=== PATIENT | female | born 1975 | race Caucasian/White ===

== ENCOUNTER → 2016-09-27 | Outpatient (CLI) | payer MEDICARE, MEDICAID ==
--- NOTE | 2016-09-27 09:09 | Diagnostic Imaging Report ---
CLINICAL INDICATION: Patient with low back pain since 2006. Patient had a lifting injury. EXAM: MRI of the lumbar spine performed without IV contrast. Sagittal T2, sagittal T1, sagittal stir, axial T1, and axial T2. COMPARISON: None. FINDINGS: There is a 13 mm cyst involving the posterior aspect of the inferior left kidney and a roughly 11 mm cyst involving the mid portion of the right kidney. Assuming 5 lumbar type vertebra. There is slight loss of upper lumbar spine lordotic posture. Otherwise, the lumbar spine shows no acute fracture or dislocation. There are multiple chronic Schmorl's nodes involving the T12, L1, L2, and L3 vertebral bodies. There is a small amount of Modic type II degenerative signal changes involving the anterior aspects of the T11, T12, L1, L3, and L5 vertebral bodies. The visualized portions of the distal spinal cord, conus medullaris, and cauda equina have normal anatomic appearance. The conus medullaris tip is seen at the mid L1 vertebral body level. No paraspinal soft tissue abnormality is seen. There are moderately hypertrophic disc spurs anteriorly throughout the thoracolumbar spine. There is multilevel facet arthropathy. T11-T12: There is a diffuse disc bulge, endplate irregularity and minimal ligamentum flavum buckling. There is moderate central canal narrowing. T12-L1: There is a mild diffuse disc bulge with a small left paracentral disc extrusion/herniation component, endplate irregularity and mild facet arthropathy. There is mild central canal narrowing. L1-L2: There is a diffuse disc bulge with a left paracentral disc protrusion/herniation component. There is mild loss of intervertebral disc height, endplate irregularity. There is mild central canal narrowing. There is no significant neural foramen narrowing. L2-L3: A small anterior disc spurs. There is no significant central spinal canal or neural foramen narrowing. L3-L4: There is a diffuse disc bulge with disc spurs extending into the far right lateral and anterior aspect at this level. There is mild bilateral facet arthropathy. There is mild central canal narrowing, mild to moderate right neural foramen narrowing, and moderate left neural foramen narrowing. L4-L5: There is a diffuse disc bulge with small central disc protrusion/herniation component. There is mild bilateral facet arthropathy. There is minimal impression upon the thecal sac anteriorly. There is moderate bilateral neural foramen narrowing. L5-S1: There is a [id number] sized central disc protrusion/herniation with roughly 12 mm of superior disc migration centrally. There is mild impression upon the thecal sac anteriorly. There is concern for impingement upon the non-exited left S1 nerve root. There is mild left neural foramen narrowing. IMPRESSION: 1: There is no evidence of acute lumbar spine fracture or dislocation. 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 3: There is a small to moderate sized L5-S1 central disc herniation with superior disc migration which causes concern for impingement upon the non-exited left S1 nerve root. 4: There is moderate central canal narrowing at the T11-T12 level due to diffuse disc bulge. 5: There is [id number] multilevel neural foramen narrowing. 6: Bilateral renal cysts. Dictated by: Dictated on workstation # [id number]
== END ==
LOC: RAD 06:50
PROVIDERS: ATTEND Family Medicine
DX: M46.46 Discitis, unspecified, lumbar region (principal); M48.07 Spinal stenosis, lumbosacral region; M48.04 Spinal stenosis, thoracic region
CPT/HCPCS: 72148

== ENCOUNTER → 2016-10-10 | Outpatient (CLI) | payer MEDICARE, MEDICAID ==
[~2016-10-10] MED LIST: methylPREDNISolone 80 MG/ML (DEPO MEDROL) VIAL IM ONE
== END ==
LOC: PMC 10:19
PROVIDERS: ATTEND Family Medicine
DX: M46.46 Discitis, unspecified, lumbar region (principal); M54.17 Radiculopathy, lumbosacral region
CPT/HCPCS: 62322; J1040